=== PATIENT | female | born 1995 | race American Indian/Alaskan Native ===

== ENCOUNTER 2018-11-14 00:24 | Emergency (ER) | payer OTHER, MEDICAID ==
[2018-11-14 00:58] VITALS: BP 129/91
[2018-11-14] MEDS ORDERED: TYLENOL PO ONE (01:42)
[2018-11-14] MEDS ORDERED: TYLENOL ONE (01:43)
[2018-11-14 01:58] LABS: HCG Qualitative,Urine Negative (Negative)
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
--- NOTE | 2018-11-14 05:07 | XRay Report ---
PROCEDURE: XR SPINE LUMBOSACRAL 2-3V TECHNIQUE: 3 views of the lumbar spine were obtained. HISTORY: low back pain COMPARISONS: None FINDINGS: The disc heights and alignment appear normal. There is no evidence of fracture. The SI joints appear normal. The soft tissues appear normal. IMPRESSION: Within normal limits.. This document is electronically signed by Yuri Fischer MD., November 14 2018 05:05:16 AM ET
--- NOTE | 2018-11-14 05:08 | XRay Report ---
PROCEDURE: XR SPINE CERVICAL 2-3V TECHNIQUE: 3 views of the cervical spine were obtained. HISTORY: posterior neck pain COMPARISONS: None FINDINGS: The disc heights and alignment appear normal. The prevertebral soft tissues and C1-C2 articulation ap pear intact. IMPRESSION: Within normal limits.. This document is electronically signed by Yuri Fischer MD., November 14 2018 05:06:16 AM ET
--- NOTE | 2018-11-14 05:11 | XRay Report ---
PROCEDURE: XR CHEST ROUTINE 2V TECHNIQUE: PA and lateral views of the chest were obtained. HISTORY: chest tenderness on left COMPARISONS: None FINDINGS: The heart size and mediastinum appear normal. The lungs are clear. There are small surgical clips in the mediastinum at the level of the aortic knob. Pleural fluid is not seen. The bones and soft tissue s reveal a well-healed fracture involving the left sixth rib with callus formation. IMPRESSION: No acute cardiopulmonary process.. This document is electronically signed by Yuri Fischer MD., November 14 2018 05:09:06 AM ET
== END 2018-11-14 05:35 | disposition home or self-care (01) ==
LOC: ED 00:24
DX: S39.012A Strain of muscle, fascia and tendon of lower back, initial encounter (principal); S29.012A Strain of muscle and tendon of back wall of thorax, initial encounter; M25.562 Pain in left knee; F17.200 Nicotine dependence, unspecified, uncomplicated; V89.2XXA Person injured in unspecified motor-vehicle accident, traffic, initial encounter; Y93.89 Activity, other specified; Y92.488 Other paved roadways as the place of occurrence of the external cause; Y99.8 Other external cause status
CPT/HCPCS: 71046; 72040; 72100; 81025; 99284

== ENCOUNTER 2020-03-10 12:14 | Emergency (ER) | payer MEDICAID ==
[2020-03-10 13:16] VITALS: BP 121/73
--- NOTE | 2020-03-10 15:08 | Event Note ---
ED Screening Note Date of service: 03/10/20 Time: 15:05 ED Screening Note: 24-year-old female presenting with back pain and dysuria which strong smelling urine times for a while now. Patient states she was recently tested for STDs and was negative. This initial assessment/diagnostic orders/clinical plan/treatment(s) is/are subject to change based on patients health status, clinical progression and re- assessment by fellow clinical providers in the ED. Further treatment and workup at subsequent clinical providers discretion. Patient/guardian urged not to elope from the ED as their condition may be serious if not clinically assessed and managed. Initial orders include: UA UPT
[2020-03-10 17:52] LABS: Mucus,Urine FEW /HPF
[2020-03-10 18:09] LABS: Bilirubin,Urine NEG (Negative); Blood,Urine NEG (Negative); Color,Urine Yellow (Yellow); Protein,Urine <15 mg/dL mg/dL (Negative)
[2020-03-10 18:16] LABS: HCG Qualitative,Urine Negative (Negative)
== END 2020-03-10 18:51 | disposition home or self-care (01) ==
LOC: ED 12:14
DX: R30.0 Dysuria (principal); Z53.21 Procedure and treatment not carried out due to patient leaving prior to being seen by health care provider
CPT/HCPCS: 81001; 81025

== ENCOUNTER 2020-03-22 00:36 | Emergency (ER) | payer MEDICAID ==
[2020-03-22] MEDS ORDERED: MORPHINE 4 MG/1 ML INJ IM ONE (01:27)
[2020-03-22] MEDS ORDERED: ONDANSETRON 4 MG ODT TAB PO ONE (01:27)
--- NOTE | 2020-03-22 01:42 | XRay Report ---
RIGHT WRIST 2 VIEWS INDICATION / CLINICAL INFORMATION: right wrist pain and deformity COMPARISON: None available. FINDINGS: BONES / JOINT(S): Transverse fracture through the distal radial metaphysis. Impaction with posterior displacement of distal fragment. Avulsion ulnar styloid process. SOFT TISSUES: No significant abnormality. ADDITIONAL FINDINGS: None. Signer Name: Kulwinder Hsu MD Signed: 03/22/2020 1:37 AM Workstation Name: [id number]
[2020-03-22] MEDS ORDERED: KETOROLAC 30 MG/1 ML INJ IV ONE (02:30)
[2020-03-22] MEDS ORDERED: HYDROmorphone 1 MG/1 ML INJ IV ONE (02:30)
[2020-03-22] MEDS ORDERED: ONDANSETRON 4 MG/2 ML INJ IV ONE (04:20)
[2020-03-22] MEDS ORDERED: fentaNYL 100 MCG/2 ML INJ IV ONE (04:20)
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
[2020-03-22] MEDS ORDERED: ETOMIDATE 20 MG/10 ML INJ IV ONE (04:28)
[2020-03-22 05:16] VITALS: BP 114/63
--- NOTE | 2020-03-22 05:32 | XRay Report ---
RIGHT WRIST 2 VIEWS INDICATION / CLINICAL INFORMATION: Post reduction COMPARISON: Earlier the same day. FINDINGS: BONES / JOINT(S): Interval reduction distal radial fracture with residual posterior displacement and angulation. Avulsion of the ulnar styloid. Patient now in plaster. SOFT TISSUES: No significant abnormality. ADDITIONAL FINDINGS: None. Signer Name: Kulwinder Hsu MD Signed: 03/22/2020 5:27 AM Workstation Name: [id number]
== END 2020-03-22 05:46 | disposition home or self-care (01) ==
LOC: ED 00:36
DX: S52.501A Unspecified fracture of the lower end of right radius, initial encounter for closed fracture (principal); Z79.1 Long term (current) use of non-steroidal anti-inflammatories (NSAID); Z79.899 Other long term (current) drug therapy; X58.XXXA Exposure to other specified factors, initial encounter; Y93.89 Activity, other specified; Y92.89 Other specified places as the place of occurrence of the external cause; Y99.8 Other external cause status
CPT/HCPCS: 25605; 73100; 96372; 96374; 96375; 99285; J1170; J1885; J2270; J2405; J3010; Q0162

== ENCOUNTER 2020-07-21 13:13 | Outpatient (CLI) | payer MEDICAID ==
--- NOTE | 2020-07-21 16:21 | Ultrasound Report ---
ULTRASOUND BREAST BILATERAL COMPLETE, 07/21/2020 CLINICAL INFORMATION / INDICATION: Bilateral breast pain. TECHNIQUE: Complete sonographic evaluation of all 4 quadrants and retroareolar region was performed. COMPARISON: None. FINDINGS: Right breast: Sonographic evaluation of the entire right breast was performed. There is no mass, cyst , or abnormal area of shadowing identified. There is no sonographic correlate to account for the spenser ent's complaint of breast pain. Left breast:Sonographic evaluation of the entire left breast was performed. There is no mass, cyst, o r abnormal area of shadowing identified. There is no sonographic correlate to account for the patient 's complaint of breast pain. IMPRESSION: No sonographic evidence of malignancy. Follow up recommendation: Clinical correlation is recommended for the complaint of bilateral breast p ain. BI-RADS Category 1: Negative. A normal or "negative" report should not preclude biopsy or follow-up of a clinically suspicious find ing. Signer Name: Nataliia Owens MD Signed: 07/21/2020 4:17 PM Workstation Name: [id number]
== END 2020-07-21 13:14 | disposition home or self-care (01) ==
LOC: US 13:13
PROVIDERS: ATTEND Plastic Surgery
DX: N64.4 Mastodynia (principal); N62 Hypertrophy of breast

== ENCOUNTER 2020-08-23 15:49 | Outpatient (CLI) | payer MEDICAID ==
--- NOTE | 2020-08-23 17:52 | XRay Report ---
XR wrist 3+V RT INDICATION / CLINICAL INFORMATION: UNSPECIFIED FX OF LOWER END OF RIGHT RADIUS. COMPARISON: 04/09/2020 FINDINGS: Radial fixation plate and screw construct remains in position, associated with healed fracture deform ity. Alignment is anatomic. There is a stable displaced ununited ulnar styloid fracture. No acute fra cture. Carpal alignment is preserved. No significant arthritis. Soft tissues are unremarkable. Signer Name: Iain Palacios MD Signed: 08/23/2020 5:48 PM Workstation Name: [id number]
== END 2020-08-23 15:50 | disposition home or self-care (01) ==
LOC: XRAY 15:49
PROVIDERS: ATTEND Orthopaedic Surgery
DX: S52.501D Unspecified fracture of the lower end of right radius, subsequent encounter for closed fracture with routine healing (principal); X58.XXXD Exposure to other specified factors, subsequent encounter

== ENCOUNTER 2021-08-08 15:27 | Outpatient (CLI) | payer MEDICAID ==
--- NOTE | 2021-08-08 16:05 | XRay Report ---
XR wrist 3+V RT INDICATION: S62.109P. Follow-up fracture, status post ORIF COMPARISON: Radiographs 08/23/2020 FINDINGS: ORIF hardware is noted across a healed distal radius fracture. No hardware fracture is seen. Chronic, ununited ulnar styloid fracture is noted. No acute fracture is seen. No significant soft tissue swelling. IMPRESSION: 1. No acute findings. Signer Name: Brijesh Liz MD Signed: 08/08/2021 4:00 PM Workstation Name: [email or web address]
== END 2021-08-08 15:28 | disposition home or self-care (01) ==
LOC: XRAY 15:27
PROVIDERS: ATTEND Orthopaedic Surgery
DX: S62.101P Fracture of unspecified carpal bone, right wrist, subsequent encounter for fracture with malunion (principal); X58.XXXD Exposure to other specified factors, subsequent encounter

== ENCOUNTER 2021-08-25 08:34 | Day surgery (SDC) | payer MEDICAID ==
[~2021-08-25 08:34] MED LIST: ACETAMINOPHEN 500 MG TAB PO SCH; CELECOXIB 200 MG CAP PO NR; GABAPENTIN 300 MG CAP PO NR; LACTATED RINGERS 1,000 ML IV SCH; MIDAZOLAM 2 MG/2 ML INJ IV NR; SCOPOLAMINE TRANSDERMAL PATCH 72 HR TD NR; ceFAZolin/Water 2 GM/20 ML 2 GM/20 ML SYRINGE IV NR
[2021-08-25] MEDS ORDERED: oxyCODONE /ACETAMINOPHEN 5-325MG TAB PO PRN (09:25)
[2021-08-25] MEDS ORDERED: HYDROmorphone 1 MG/1 ML INJ IV PRN (09:25)
--- NOTE | 2021-08-25 09:25 | Anesthesia Day of Surgery ---
Anesthesia Day of Surgery - Day of Surgery Patient Examined: Yes Patient H&P Reviewed: Yes Patient is NPO: Yes
--- NOTE | 2021-08-25 09:25 | Anesthesia Consultation ---
Anesthesia Consult and Med Hx Date of service: 08/25/21 - Airway Anesthetic Teeth Evaluation: Good ROM Head & Neck: Adequate Mental/Hyoid Distance: Adequate Mallampati Class: Class III Intubation Access Assessment: Possibly Difficult (previous LMA 4) - Pre-Operative Health Status ASA Pre-Surgery Classification: ASA2 Proposed Anesthetic Plan: General - Pulmonary Hx Smoking: Yes (quit 1 month ago) Hx Respiratory Symptoms: No Hx Sleep Apnea: No (JONNIE PRE SCREEN NEGATIVE) - Cardiovascular System Hx Hypertension: No Hx Heart Attack/AMI: No Hx Percutaneous Transluminal Coronary Angioplasty (PTCA): No - Central Nervous System CVA: No - Endocrine Hx Renal Disease: No Hx Liver Disease: No Hx Insulin Dependent Diabetes: No Hx Non-Insulin Dependent Diabetes: No Hx Thyroid Disease: No - Other Systems Hx Obesity: No - Additional Comments Anesthesia Medical History Comments: Hx PONV.
[2021-08-25] MEDS ORDERED: ONDANSETRON 4 MG/2 ML INJ IV PRN (09:30)
[2021-08-25] MEDS ORDERED: MIDAZOLAM 2 MG/2 ML INJ ONE (11:15)
[2021-08-25] MEDS ORDERED: propofoL 200 MG/20 ML VIAL IV ONE (11:16)
[2021-08-25] MEDS ORDERED: fentaNYL 100 MCG/2 ML INJ ONE (11:16)
[2021-08-25] MEDS ORDERED: ONDANSETRON 4 MG/2 ML INJ ONE (11:30)
[2021-08-25] MEDS ORDERED: dexAMETHasone 20 MG/5 ML VIAL ONE (11:30)
[2021-08-25] MEDS ORDERED: NEOMY 40 MG/POLYMYXIN B 200,000 UNITS/ML (GU) AMPULE IR ONE (11:39)
[2021-08-25 12:41] VITALS: BP 125/78
== END 2021-08-25 08:35 | disposition home or self-care (01) ==
LOC: OR 08:34
PROVIDERS: ATTEND Orthopaedic Surgery
DX: Z47.2 Encounter for removal of internal fixation device (principal); F17.210 Nicotine dependence, cigarettes, uncomplicated; Z53.8 Procedure and treatment not carried out for other reasons; Z20.822 Contact with and (suspected) exposure to COVID-19; Z79.899 Other long term (current) drug therapy; Z98.890 Other specified postprocedural states
CPT/HCPCS: 81025; J0690; J1100; J2250; J2405; J2704; J3010; J7120; U0003

== ENCOUNTER 2021-08-26 09:01 | Day surgery (SDC) | payer MEDICAID ==
[2021-08-26] MEDS ORDERED: ONDANSETRON 4 MG/2 ML INJ IV PRN (09:38)
[2021-08-26] MEDS ORDERED: HYDROcodone/ACETAMINOPHEN 5-325 MG TAB PO PRN (09:38)
[2021-08-26] MEDS ORDERED: ACETAMINOPHEN 500 MG TAB PO SCH (09:39)
[2021-08-26] MEDS ORDERED: ceFAZolin/Water 2 GM/20 ML 2 GM/20 ML SYRINGE IV ONE (09:42)
[2021-08-26] MEDS ORDERED: LACTATED RINGERS 1,000 ML IV SCH (09:45)
--- NOTE | 2021-08-26 09:54 | Anesthesia Day of Surgery ---
Anesthesia Day of Surgery - Day of Surgery Patient Examined: Yes Patient H&P Reviewed: Yes Patient is NPO: Yes
[2021-08-26] MEDS: MIDAZOLAM 2 MG/2 ML INJ IV NR ×2 (10:25→12:20)
[2021-08-26] MEDS ORDERED: ceFAZolin/STERILE WATER 2 GM/20 ML SYRINGE IV NR (11:00)
[2021-08-26] MEDS ORDERED: MIDAZOLAM 2 MG/2 ML INJ IV ONE (12:20)
[2021-08-26] MEDS ORDERED: KETOROLAC 30 MG/1 ML INJ ONE (12:55)
[2021-08-26] MEDS ORDERED: ONDANSETRON 4 MG/2 ML INJ ONE (12:55)
[2021-08-26] MEDS ORDERED: fentaNYL 100 MCG/2 ML INJ ONE (12:55)
[2021-08-26] MEDS ORDERED: propofoL 200 MG/20 ML VIAL IV ONE (12:55)
[2021-08-26] MEDS ORDERED: LACTATED RINGERS 1000 ML IV SOLN ONE (12:55)
[2021-08-26] MEDS ORDERED: dexAMETHasone 4 MG/ML VIAL ONE (12:55)
[2021-08-26] MEDS ORDERED: LIDOCAINE PF 100 MG/5 ML (CARDIAC SYRINGE) IV ONE (12:55)
[2021-08-26] MEDS ORDERED: SODIUM CHLORIDE 0.9% IRR 1,500 ML BOTTLE IR ONE (13:39)
[2021-08-26] MEDS: HYDROmorphone 1 MG/1 ML INJ IV PRN ×2 (15:16→15:51)
--- NOTE | 2021-08-26 15:52 | Procedure Note ---
Date of procedure: 08/26/21 Pre-op diagnosis: Hardware irritation right wrist status post IM nail right distal radius Post-op diagnosis: same Procedure: Attempted hardware removal right wrist Procedure The patient was brought to the OR placed on the OR table in the supine position following induction with MAC anesthesia the patient's right upper extremity was prepped and draped in the usual sterile manner. A timeout procedure was done to identify the patient and the correct operative site. The arm was exsanguinated followed by inflation of the pneumatic tourniquet to 250 mmHg. Utilizing the previous incisions and stab wounds the incision over the distal radius was incised using a #15 blade there is taken down sharply through skin subcu using various retractors the distal portion of the intramedullary nail was seen 2 screws were removed from the distal locking site the third most distal screw doing attempted removal one of the teeth on the screw head fractured making it almost virtually impossible to remove the screw individually following this multiple attempts at removal of the entire IM nail were attempted after removal of T2 dorsal proximal screws after multiple attempts at removal decision was made to simply at this point closed wound hopefully patient's symptoms will evie somewhat with partial removal the wound was then closed closed with a 2-0 Vicryl Zipline suture device was applied as well AP and lateral views were obtained showing removal of the 2 distal and 2 proximal screws with retention of the most distal locking screw within the IM nail present. Routine postop dressings were applied and the patient was taken to postanesthesia recovery in a stable condition Anesthesia: MAC Surgeon: ENRIQUE GUILLAUME Estimated blood loss: minimal Condition: stable Disposition: PACU
--- NOTE | 2021-08-26 16:05 | XRay Report ---
INTRAOPERATIVE FLUOROSCOPY: RIGHT WRIST INDICATION / CLINICAL INFORMATION: HARDWARE REMOVAL. TECHNIQUE: Intraoperative spot images were obtained during the procedure. FINDINGS: Images show orthopedic hardware in the right wrist. See operative/procedure note by performing physician for full details. Fluoroscopy Time: 0.1 minutes. Fluoroscopy Images: 2. Signer Name: Jimbo Gibson MD Signed: 08/26/2021 4:01 PM Workstation Name: [id number]
--- NOTE | 2021-08-26 17:46 | Post Anesthesia Evaluation ---
- Post Anesthesia Evaluation Patient Participated: Yes Airway Patent: Yes Stable Respiratory Function: Yes Nausea/Vomiting: No Temp > 96.8F: Yes Pain Manageable: Yes Adequeate Hydration: Yes Anesthesia Complications: No
[2021-08-26] MEDS ORDERED: oxyCODONE /ACETAMINOPHEN 5-325MG TAB PO ONE (17:47)
[2021-08-26 18:39] VITALS: BP 126/82
== END 2021-08-26 18:20 | disposition home or self-care (01) ==
LOC: OR 09:01
PROVIDERS: ATTEND Orthopaedic Surgery
DX: Z47.2 Encounter for removal of internal fixation device (principal); T84.84XA Pain due to internal orthopedic prosthetic devices, implants and grafts, initial encounter; F17.210 Nicotine dependence, cigarettes, uncomplicated; Z72.89 Other problems related to lifestyle; Z98.890 Other specified postprocedural states; Z79.899 Other long term (current) drug therapy; Y82.8 Other medical devices associated with adverse incidents; Y92.89 Other specified places as the place of occurrence of the external cause
CPT/HCPCS: 20680; 73100; J0690; J1100; J1170; J1885; J2001; J2250; J2405; J2704; J3010; J7120

== ENCOUNTER 2022-04-10 16:11 | Outpatient (CLI) | payer MEDICAID ==
--- NOTE | 2022-04-10 17:25 | XRay Report ---
XR hand 3+V RT INDICATION / CLINICAL INFORMATION: M79.641 PAIN IN RIGHT HAND. COMPARISON: None available. FINDINGS: BONES/JOINT(S): No acute fracture or subluxation. Previous central fixation of the distal radius with small residual fracture fragment along the radial styloid. Chronic nondisplaced ulnar styloid proces s fracture. SOFT TISSUES: No significant abnormality. ADDITIONAL FINDINGS: None. Signer Name: Jimbo Gibson MD Signed: 04/10/2022 5:21 PM Workstation Name: [id number]
== END 2022-04-10 16:12 | disposition home or self-care (01) ==
LOC: XRAY 16:11
PROVIDERS: ATTEND Orthopaedic Surgery
DX: S52.614A Nondisplaced fracture of right ulna styloid process, initial encounter for closed fracture (principal); X58.XXXA Exposure to other specified factors, initial encounter; Y93.89 Activity, other specified; Y92.89 Other specified places as the place of occurrence of the external cause; Y99.8 Other external cause status